=== PATIENT | male | born 1970 | race Caucasian/White ===

== ENCOUNTER 2022-08-28 19:12 | Emergency (ER) | payer BC ==
[2022-08-28 19:28] VITALS: BP 122/93; PULSE 97; RESP 18; TEMP 98.3; BMI 27.8
[2022-08-28] MEDS ORDERED: IBUPROFEN 600 MG TABLET (FP) PO ONE (19:38)
[2022-08-28] MEDS ORDERED: IBUPROFEN 400 MG TABLET (FP) PO ONE (19:40)
== END 2022-08-28 20:56 | disposition home or self-care (01) ==
LOC: FER 19:12
DX: R07.9 Chest pain, unspecified (principal)
CPT/HCPCS: 36415; 82550; 84484; 93005; 93010; 99284-25